=== PATIENT | female | born 1995 ===

== ENCOUNTER 2018-04-13 16:00 | Emergency (ER) | payer OTHER ==
[2018-04-13 16:08] VITALS: BP 109/70; PULSE 78; RESP 18; TEMP 98.9; O2SAT 100
[2018-04-13] MEDS ORDERED: Naproxen 550 mg Tab PO STA (16:11)
[2018-04-13] MEDS ORDERED: Naproxen 550 mg Tab PO ONE (16:19)
--- NOTE | 2018-04-13 16:40 | C.PDOC ---
History Of Present Illness 23 y/o female presents to the ED complaining of right hand/wrist pain that began yesterday. She dropped a 5 lb can of beans on her arm at work four days ago. She continued working but last night she noted increased swelling prompting her to come in today. 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 The patient denies any numbness or tingling. Right hand dominant. Time Seen by Provider: 04/13/18 16:08 Chief Complaint (Nursing): Finger,Hand,&Wrist History Per: Patient, Hris Manager (Maco Blood) History/Exam Limitations: no limitations Onset/Duration Of Symptoms: Days Current Symptoms Are (Timing): Still Present Quality: "Pain" Recent travel outside of the [place]: No Past Medical History Reviewed: Historical Data, Nursing Documentation, Vital Signs Vital Signs: Last Vital Signs Temp 98.9 F 04/13/18 16:04 Pulse 78 04/13/18 16:04 Resp 18 04/13/18 16:04 BP 109/70 04/13/18 16:04 Pulse Ox 100 04/13/18 20:03 - Medical History PMH: No Chronic Diseases Surgical History: No Surg Hx Family History: States: Unknown Family Hx - Social History Hx Tobacco Use: No Hx Alcohol Use: Yes Hx Substance Use: No Review Of Systems Constitutional: Negative for: Fever Musculoskeletal: Positive for: Hand Pain (right ). Negative for: Arm Pain Skin: Positive for: Bruising, Other (swelling to right hand/wrist). Negative for: Lesions Neurological: Negative for: Weakness, Numbness, Other (tingling) Physical Exam - Physical Exam Appears: Well, Non-toxic, No Acute Distress Skin: Warm, Ecchymosis (to right hand/wrist) Head: Atraumatic, Normacephalic Eye(s): bilateral: Normal Inspection, EOMI Nose: Normal Oral Mucosa: Moist Neck: Normal ROM, Supple Chest: Symmetrical Cardiovascular: Rhythm Regular Respiratory: Normal Breath Sounds, No Accessory Muscle Use, No Rales, No Rhonchi , No Wheezing Extremity: No Normal ROM (limited due to pain), Tenderness (TTP and swelling to dorsal aspect of the wrist and hand), Capillary Refill (<2 seconds), No Deformity, Swelling, Other (normal sensation) Pulses: Left Radial: Normal, Right Radial: Normal Neurological/Psych: Oriented x3, Normal Speech, Normal Sensation ED Course And Treatment O2 Sat by Pulse Oximetry: 100 (RA) Pulse Ox Interpretation: Normal - Other Rad Right Wrist X-Ray: Viewed By Me, Read By Radiologist Interpretation: No demonstrated fracture or dislocation. Right Hand X-Ray: Viewed By Me, Read By Radiologist Interpretation: No demonstrated fracture or dislocation. Progress Note: Anaprox Ds 550 mg PO was given in ED. Wrist immobilizer applied by plasma processing technician. Pateint was advised to keep wrist elevated, avoid strenuos activity involving right hand/wrist and to apply ice treatment. Disposition - Disposition Referrals: Kanwal Alexandra MD [Staff Provider] - Disposition: HOME/ ROUTINE Disposition Time: 16:38 Condition: STABLE Additional Instructions: Rest, ice and elevate the area. Follow up with the bone doctor in 1-2 days. Descanse, hiele y eleve el yasmany. Lani un seguimiento con el mdico de los huesos en 1-2 perez. 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 - Scribe Statement The provider has reviewed the documentation as recorded by the Scribe (Caitie Navarro) All medical record entries made by the Scribe were at my direction and personally dictated by me. I have reviewed the chart and agree that the record accurately reflects my personal performance of the history, physical exam, medical decision making, and the department course for this patient. I have also personally directed, reviewed, and agree with the discharge instructions and disposition.
--- NOTE | 2018-04-13 16:41 | RAD ---
Date of service: 04/13/2018 PROCEDURE: Right Wrist Radiographs. HISTORY: trauma COMPARISON: None. FINDINGS: BONES: No acute fracture. JOINTS: Unremarkable. SOFT TISSUES: Normal. OTHER FINDINGS: None. IMPRESSION: No demonstrated fracture or dislocation.
--- NOTE | 2018-04-13 16:42 | RAD ---
PROCEDURE: Right Hand Radiographs. HISTORY: trauma COMPARISON: None. FINDINGS: BONES: No acute fracture. JOINTS: Unremarkable. SOFT TISSUES: Soft tissue swelling adjacent to 5th digit. OTHER FINDINGS: None. IMPRESSION: No demonstrated fracture or dislocation.
== END 2018-04-13 16:48 | disposition home or self-care (01) ==
LOC: C.ER 16:00
DX: S60.221A Contusion of right hand, initial encounter (principal); W20.8XXA Other cause of strike by thrown, projected or falling object, initial encounter; Y99.0 Civilian activity done for income or pay